=== PATIENT | male | born 1990 ===

== ENCOUNTER 2023-12-22 19:15 | Emergency (ER) | payer BC, SELFPAY ==
[2023-12-22] MEDS ORDERED: HYDROcodone/Acetaminophen 5/325 mg Tablet ONE (20:13)
[2023-12-22] MEDS ORDERED: Lidocaine 1% PF 5 ML VIAL ONE ×2 (20:13→21:05)
[2023-12-22] MEDS ORDERED: Boostrix 0.5 ML (Tdap) VIAL (>/=7 yrs of age) ONE (20:14)
[2023-12-22] MEDS ORDERED: Bacitracin 1 PK ONE (21:20)
== END 2023-12-22 21:40 | disposition home or self-care (01) ==
LOC: CSHERS 19:15
DX: S90.851A Superficial foreign body, right foot, initial encounter (principal); F17.210 Nicotine dependence, cigarettes, uncomplicated; F17.290 Nicotine dependence, other tobacco product, uncomplicated; Z23 Encounter for immunization; W45.8XXA Other foreign body or object entering through skin, initial encounter; Y93.E2 Activity, laundry
CPT/HCPCS: 10120; 90471; 90715